=== PATIENT | female | born 1965 | race Caucasian/White ===

== ENCOUNTER 2018-08-18 20:23 | Emergency (ER) | payer MEDICARE, SELFPAY ==
[2018-08-18 20:33] VITALS: BP 143/83; PULSE 90; RESP 18; TEMP 36.7; O2SAT 97; BMI 24.0
--- NOTE | 2018-08-18 20:38 | XR_ITS ---
XR chest 2V HISTORY: ITS.REASON: chest pain ORDERING PHYSICIAN: Petey Middleton MD PATIENT AGE: 53 years COMPARISON: 01/04/2013 FINDINGS: Mild cardiomegaly without failure.. The lungs are clear without infiltrates, suspicious nodules, or pleural effusions. Small calcific density overlies right humeral head and may represent calcific tendinitis No acute bony abnormalities. IMPRESSION: Borderline cardiomegaly Calcific tendinitis right shoulder
[2018-08-18 20:47] LABS: Microscopic, Urine URINE MICROSCOPIC (MICROSCOPIC)
[2018-08-18 20:52] LABS: Appearance,Urine CLEAR (Clear); Bilirubin,Urine Negative (Negative); Blood, Urine Negative (Negative); Color,Urine YELLOW (Yellow); Glucose,Urine (UA) Negative (Negative); Ketones,Urine Negative (Negative); Leukocyte Esterase,Urine Negative (Negative); Nitrate,Urine Negative (Negative); Protein,Urine Negative (Negative); Urobilinogen,Urine 0.2 EU/dl (0.2)
[2018-08-18 20:53] LABS: Basophils % 0.3 % (0.1-2.0); Eosinophils % 0.6 % (0.1-12.0); Hematocrit 39.3 % (37.0-47.0); Hemoglobin 13.2 g/dL (12.2-16.2); Lymphocytes # 1.3 K/mm3 (0.7-4.5); Lymphocytes % 20.8 % (10-50); Mean Corpuscular HGB Conc 33.7 g/dL (31.8-35.4); Mean Corpuscular Hemoglobin 28.2 pg (27.0-31.2); Mean Corpuscular Volume 83.6 fl (81-99); Mean Platelet Volume 6.6 fl (7.4-10.4); Monocytes # 0.3 K/mm3 (0.1-1.0); Monocytes % 4.5 % (1.7-9.3); Neutrophils # 4.4 K/mm3 (1.8-7.8); Neutrophils % 73.8 % (37.0-80.0); Platelet Count 264 K/mm3 (142-424); Red Cell Distribution Width 13.3 % (11.5-17.5)
[2018-08-18 20:58] LABS: Bacteria,Urine 1+ /lpf; Mucus,Urine 1+ /lpf
[2018-08-18 21:05] LABS: Amphetamine/Metha Screen,Urine Negative ng/mL (<1000); Barbiturates Screen,Urine Negative ng/mL (<200); Benzodiazepines Screen,Urine Negative ng/mL (<200); Cannabinoid Screen,Urine Negative ng/mL (<50); Cocaine Screen,Urine Negative ng/mL (<300); Methadone Screen,Urine Positive ng/mL (<300); Opiate Screen,Urine Negative ng/mL (<300); Phencyclidine Screen,Urine Negative ng/mL (<25)
[2018-08-18 21:07] LABS: Alanine Aminotransferase 34 U/L (12-78); Albumin Level 3.6 gm/dL (3.4-5.0); Alkaline Phosphatase 119 U/L (46-116); Anion Gap 13.6 mEq/L (5-15); Aspartate Amino Transferase 19 U/L (15-37); Bilirubin,Total 0.4 mg/dL (0.2-1.0); Blood Urea Nitrogen 10 mg/dL (7-18); Calcium 8.7 mg/dL (8.5-10.1); Carbon Dioxide 27 mmol/L (21.0-32.0); Chloride 104 mmol/L (98-107); Creatinine Clearance Estimated 92 mL/min (50-200); Creatinine,Serum 0.69 mg/dL (0.55-1.02); Estimated Glomerular Filt Rate 88 ml/min (>60); GFR (African American) 107 ML/MIN (>60); Globulin 3.6 gm/dl (1.3-3.2); Glucose 113 mg/dL (74-106); Potassium 3.6 mmoL/L (3.5-5.1); Sodium 141 mmol/L (136-145); Total Protein,Serum 7.2 gm/dL (6.4-8.2); Troponin I < 0.02 ng/ml (0.00-0.06)
[2018-08-18 21:09] LABS: Ethyl Alcohol 0 mg/dL (0-99)
--- NOTE | 2018-08-18 21:18 | HMH.EDARPALP ---
ED Disposition Clinical Impression: Palpitation, Acute anxiety Disposition: Home, Self-Care Condition on Discharge: Good Instructions: Anxiety and Panic Attacks (Alternative Therapy) Additional Instructions: see pcp for follow up Referrals: Provider,Referral, [Primary Care Provider] - - Critical Care Critical Care Time: No Attestation: On 08/18/18, the high probability of a clinically significant, sudden or life threatening deterioration of the following system(s) required my full and direct attention, intervention and personal management. The time I documented below is in addition to time spent performing reported procedures but includes the following listed in this critical care notation. Medical Decision Making - Medical Records Medical records reviewed: Yes: I reviewed the patient's medical records. - Michael Inquiry Pt receiving controlled substance: No Vital Signs: 08/18/18 20:33 Temperature 98.1 F Temperature Source Oral Pulse Rate [Right Radial] 90 Respiratory Rate 18 Blood Pressure [Right Arm] 143/83 H Blood Pressure Mean [Right Arm] 103 02 Sat by Pulse Oximetry 97 - Lab Data Lab results reviewed: Yes: I reviewed the patient's lab results. Lab Results 08/18/18 20:40: Urine Color Yellow, Urine Appearance Clear, Urine pH 7.0, Ur Specific [place] 1.020, Urine Protein Negative, Urine Glucose (UA) Negative, Urine Ketones Negative, Urine Blood Negative, Urine Nitrate Negative, Urine Bilirubin Negative, Urine Urobilinogen 0.2, Ur Leukocyte Esterase Negative, Urine WBC 3-5, Ur Squamous Epith Cells 3-5, Urine Bacteria 1+, Urine Mucus 1+ 08/18/18 20:40: Urine Opiates Screen Negative, Urine Methadone Screen Positive H, Ur Barbituates Screen Negative, Ur Phencyclidine Scrn Negative, Ur Amphetamines Screen Negative, U Benzodiazepines Scrn Negative, Urine Cocaine Screen Negative, U Marijuana (THC) Screen Negative 08/18/18 20:45: WBC 6.0, RBC 4.70, Hgb 13.2, Hct 39.3, MCV 83.6, MCH 28.2, MCHC 33.7, RDW 13.3, Plt Count 264, MPV 6.6 L, Neut % (Auto) 73.8, Lymph % (Auto) 20.8, [place] % (Auto) 4.5, Eos % (Auto) 0.6, Baso % (Auto) 0.3, Neut # (Auto) 4.4, Lymph # (Auto) 1.3, [place] # (Auto) 0.3, Eos # (Auto) 0.0, Baso # (Auto) 0.0 08/18/18 20:45: Sodium 141, Potassium 3.6, Chloride 104, Carbon Dioxide 27, Anion Gap 13.6, BUN 10, Creatinine 0.69, Estimated Creat Clear 92, Estimated GFR 88, Est GFR ( Amer) 107, Glucose 113 H, Calcium 8.7, Total Bilirubin 0.4, AST 19, ALT 34, Alkaline Phosphatase 119 H, Troponin I < 0.02, Total Protein 7.2, Albumin 3.6, Globulin 3.6 H, Albumin/Globulin Ratio 1.0 L, Plasma/Serum Alcohol 0 Result diagrams: 08/18/18 20:45 08/18/18 20:45 Orders (Tests/Meds): ED MEDICATIONS Generic Name Dose Route Start Last Admin Trade Name Freq PRN Reason Stop Dose Admin Sodium Chloride 1,000 mls @ 999 mls/hr 08/18/18 20:45 08/18/18 20:46 Sod Chlor 0.9% 1000ml Bag IV 08/18/18 21:45 999 mls/hr .Q1H1M DELANEY Administration Discontinued Medications Generic Name Dose Route Start Last Admin Trade Name Freq PRN Reason Stop Dose Admin Aspirin 324 mg 08/18/18 20:38 08/18/18 20:46 Aspirin 81mg Chewable Tablet PO 08/18/18 20:39 Not Given ONCE ONE Ondansetron HCl 4 mg 08/18/18 20:39 08/18/18 20:46 Zofran 4mg/2ml Vial IV 08/18/18 20:40 4 mg ONCE ONE Administration ORDERS Category Date Time Status XR chest 2V Stat Exams 08/18/18 20:38 Taken - Radiology Data #1 Image(s): Chest Image Reviewed: Yes I reviewed the patient's radiology image Preliminary Findings: Normal/NAD - ECG Data Tracing #1 Normal Sinus Rhythm: Yes Ischemic changes: non-specific ST-T wave changes Arrhythmia/Palpitations HPI - General Chief Complaint: Anxiety Stated Complaint: Panic Attack Time Seen by Provider: 08/18/18 21:18 Mode of Arrival: Ambulatory Source of Information: Patient, Medical Record Limitations: No Limitations - History of Present Illness HPI n
[2018-08-18 21:54] VITALS: BP 126/90; PULSE 74; RESP 18; TEMP 36.7; O2SAT 100
[2018-08-18 22:20] LABS: T4 (Thyroxine) 5.6 ug/dl (4.7-13.3); Thyroid Stimulating Hormone 8.07 uIU/ml (0.358-3.740)
== END 2018-08-18 22:01 | disposition home or self-care (01) ==
PROVIDERS: Emergency Provider Emergency Medicine
DX: F41.0 Panic disorder [episodic paroxysmal anxiety] (principal); Z51.81 Encounter for therapeutic drug level monitoring
CPT/HCPCS: 71046; 80053; 80305; 81001; 84436; 84443; 84484; 85025; 93005; 96365; 96375; 99284; J2405

== ENCOUNTER 2021-03-29 05:36 | Emergency (ER) | payer MEDICARE, SELFPAY ==
[2021-03-29] VITALS (9 sets, daily range): BP systolic 128–167; BP diastolic 79–89; PULSE 82–103; RESP 16–18; TEMP 36.7; O2SAT 95–98; BMI 25.4
--- NOTE | 2021-03-29 05:46 | ECG_ITS ---
APPROVED REPORT Exam: Resting ECG HR:103 bpm ECG Measurements Heart Rate 103 AXES VT 202 P 24 QRSd 84 QRS 64 QT 352 T -2 QTc 461 Conclusion Sinus tachycardia T wave abnormality, consider inferior ischemia Abnormal ECG Electronically signed by : Brett Roman MD 03/31/2021 14:33:20
--- NOTE | 2021-03-29 05:49 | CT_ITS ---
PROCEDURE INFORMATION: Exam: CT Head Without Contrast Exam date and time: 03/29/2021 5:49 AM Age: 55 years old Clinical indication: Dizziness and visual disturbance; Additional info: Dizziness, blurred vision that started at 2 am TECHNIQUE: Imaging protocol: Computed tomography of the head without contrast. Radiation optimization: All CT scans at this facility use at least one of these dose optimization techniques: automated exposure control; mA and/or kV adjustment per patient size (includes targeted exams where dose is matched to clinical indication); or iterative reconstruction. COMPARISON: No relevant prior studies available. FINDINGS: Brain: There is subtle low attenuation in the left side of the midbrain and cerebral peduncle, extending up towards the internal capsule suspicious for a possible infarct. No evidence of intracranial hemorrhage, mass effect, midline shift or extra-axial fluid collections. Midline structures are normal. Dum[place]-white matter differentiation is normal. Cerebral ventricles: No ventriculomegaly. Paranasal sinuses: Visualized sinuses are unremarkable. No fluid levels. Mastoid air cells: Visualized mastoid air cells are well aerated. Bones/joints: Unremarkable. No acute fracture. Soft tissues: Unremarkable. IMPRESSION: Questionable infarct in the left midbrain and cerebral peduncle. If acute infarct is suspected, MRI with diffusion-weighted imaging would be helpful in further evaluating this.
--- NOTE | 2021-03-29 06:31 | HMH.EDDIZZ ---
ED Disposition Condition on Discharge: Good - Critical Care Critical Care Time: No <Petey Middleton - Last Filed: 03/29/21 08:06> Condition on Discharge: Good - Critical Care Critical Care Time: No <Esteban Frazier - Last Filed: 03/29/21 10:18> Clinical Impression: Vertigo Disposition: Home, Self-Care Instructions: Vertigo Prescriptions: Meclizine HCl [Meclizine 25mg Tab] 25 mg PO BID #20 tab Transmission Status: Pending to [facility]/pharmacy #[id number] Referrals: Provider,MD Minh [Primary Care Provider] - Coretta Brambila MD [Staff Physician] - Attestation: On 03/29/21, the high probability of a clinically significant, sudden or life threatening deterioration of the following system(s) required my full and direct attention, intervention and personal management. The time I documented below is in addition to time spent performing reported procedures but includes the following listed in this critical care notation. Medical Decision Making - Medical Records Medical records reviewed: Yes: I reviewed the patient's medical records. - Michael Inquiry Pt receiving controlled substance: No - Lab Data Lab results reviewed: Yes: I reviewed the patient's lab results. Result diagrams: 03/29/21 06:21 03/29/21 06:21 - CT Data CT Scan: Head Time Received: 07:[address] Reviewed: Yes: I have viewed the radiologist's interpretation Preliminary Findings: Abnormal (see report ) - ECG Data Tracing #1 Normal Sinus Rhythm: Yes Ischemic changes: non-specific ST-T wave changes - Reevaluation(s) Time: 07:51 <Petey Middleton - Last Filed: 03/29/21 08:06> - Lab Data Result diagrams: 03/29/21 06:21 03/29/21 06:21 - CT Data CT Scan: Other (CTA head and neck) Time Received: 10:18 - Reevaluation(s) Time: 10:16 <Esteban Frazier - Last Filed: 03/29/21 10:18> Vital Signs: 03/29/21 05:36 03/29/21 07:00 03/29/21 07:30 Temperature 98.1 F Temperature Source Oral Pulse Rate 90 82 Pulse Rate [Right Radial] 92 H Respiratory Rate 18 16 18 Blood Pressure 151/89 H 154/85 H Blood Pressure [Right Arm] 166/86 H Blood Pressure Mean 115 107 Blood Pressure Mean [Right Arm] 112 Blood Pressure Source [Right Arm] Automatic Cuff Blood Pressure Position [Right Arm] Sitting 02 Sat by Pulse Oximetry 96 98 98 Oxygen Delivery Method Room Air 03/29/21 08:00 03/29/21 08:30 03/29/21 09:00 Temperature Temperature Source Pulse Rate 87 96 H 101 H Pulse Rate [Right Radial] Respiratory Rate 16 17 16 Blood Pressure 149/83 H 167/88 H 155/87 H Blood Pressure [Right Arm] Blood Pressure Mean 108 114 109 Blood Pressure Mean [Right Arm] Blood Pressure Source [Right Arm] Blood Pressure Position [Right Arm] 02 Sat by Pulse Oximetry 95 95 96 Oxygen Delivery Method 03/29/21 09:30 03/29/21 10:00 Temperature Temperature Source Pulse Rate 95 H 101 H Pulse Rate [Right Radial] Respiratory Rate 18 16 Blood Pressure 128/86 136/79 Blood Pressure [Right Arm] Blood Pressure Mean 99 91 Blood Pressure Mean [Right Arm] Blood Pressure Source [Right Arm] Blood Pressure Position [Right Arm] 02 Sat by Pulse Oximetry 95 95 Oxygen Delivery Method - Lab Data Lab Results 03/29/21 06:21: WBC 4.9, RBC 4.80, Hgb 13.9, Hct 43.3, MCV 90.2, MCH 28.9, MCHC 32.0, RDW 13.5, Plt Count 223, MPV 7.4, Neut % (Auto) 68.5, Lymph % (Auto) 23.9, [place] % (Auto) 5.3, Eos % (Auto) 1.5, Baso % (Auto) 0.7, Neut # (Auto) 3.3, Lymph # (Auto) 1.2, [place] # (Auto) 0.3, Eos # (Auto) 0.1, Baso # (Auto) 0.0 03/29/21 06:21: Sodium 136, Potassium 3.8, Chloride 100, Carbon Dioxide 32 H, Anion Gap 7.8, BUN 14, Creatinine 0.60, Estimated Creat Clear 110, Estimated GFR 103, Est GFR ( Amer) 125, Glucose 119 H, Calcium 8.9, Troponin I < 0.01 03/29/21 06:21: Total Bilirubin 0.4, Direct Bilirubin 0.2, Conjugated Bilirubin 0.0, Indirect Bilirubin 0.2, Unconjugated Bilirubin 0.2, AST 31, ALT 19, Alkaline Phosphata
[2021-03-29 06:49] LABS: Microscopic, Urine URINE MICROSCOPIC (MICROSCOPIC)
[2021-03-29 06:51] LABS: Basophils % 0.7 % (0.1-2.0); Eosinophils # 0.1 K/mm3 (0.0-0.4); Eosinophils % 1.5 % (0.1-12.0); Hematocrit 43.3 % (37.0-47.0); Hemoglobin 13.9 g/dL (12.2-16.2); Lymphocytes # 1.2 K/mm3 (0.7-4.5); Lymphocytes % 23.9 % (10-50); Mean Corpuscular Hemoglobin 28.9 pg (27.0-31.2); Mean Corpuscular Volume 90.2 fl (81-99); Mean Platelet Volume 7.4 fl (7.4-10.4); Monocytes # 0.3 K/mm3 (0.1-1.0); Monocytes % 5.3 % (1.7-9.3); Neutrophils # 3.3 K/mm3 (1.8-7.8); Neutrophils % 68.5 % (37.0-80.0); Platelet Count 223 K/mm3 (142-424); Red Cell Distribution Width 13.5 % (11.5-17.5); White Blood Count 4.9 K/mm3 (4.8-10.8)
[2021-03-29 07:05] LABS: Appearance,Urine CLEAR (Clear); Bilirubin,Urine Negative (Negative); Blood, Urine Negative (Negative); Color,Urine YELLOW (Yellow); Glucose,Urine (UA) Negative (Negative); Ketones,Urine Negative (Negative); Leukocyte Esterase,Urine Negative (Negative); Nitrate,Urine Negative (Negative); PH,Urine 6.5 (5.0-8.5); Protein,Urine Negative (Negative); Urobilinogen,Urine 0.2 EU/dl (0.2)
[2021-03-29 07:05] LABS: Anion Gap 7.8 mEq/L (5-15); Blood Urea Nitrogen 14 mg/dl (7-17); Calcium 8.9 mg/dl (8.4-10.2); Carbon Dioxide 32 mmol/L (22.0-30.0); Chloride 100 mmol/L (98-107); Creatinine Clearance Estimated 110 mL/min (50-200); Estimated Glomerular Filt Rate 103 ml/min (>60); GFR (African American) 125 ML/MIN (>60); Glucose 119 mg/dl (74-100); Potassium 3.8 mmoL/L (3.5-5.1); Sodium 136 mmol/L (136-145)
[2021-03-29 07:26] LABS: Troponin I < 0.01 ng/ml (0.00-0.034)
[2021-03-29 07:27] LABS: Erythrocyte Sedimentation Rate 10 mm/hr (0-30)
[2021-03-29 07:29] LABS: Squamous Epithelial Cell,Urine Occasional #/hpf (0-5)
[2021-03-29 07:34] LABS: Opiate Screen,Urine Negative ng/ml (<300); Phencyclidine Screen,Urine Negative ng/ml (<25)
[2021-03-29 07:37] LABS: Amphetamine/Metha Screen,Urine Negative ng/ml (<1000)
[2021-03-29 07:38] LABS: Barbiturates Screen,Urine Negative ng/ml (<200)
[2021-03-29 07:39] LABS: Benzodiazepines Screen,Urine Negative ng/ml (<200); Cannabinoid Screen,Urine Negative ng/ml (<50)
[2021-03-29 07:40] LABS: Cocaine Screen,Urine Negative ng/ml (<300)
[2021-03-29 07:41] LABS: Methadone Screen,Urine Positive ng/ml (<300)
--- NOTE | 2021-03-29 07:49 | CT_ITS ---
FINAL REPORT TECHNIQUE: Thin section axial CT with IV contrast supplemented with multiplanar reconstruction under CT angiogram protocol. 3-D reconstructions were performed. This study was performed with techniques to keep radiation doses as low as reasonably achievable (ALARA). Individualized dose reduction techniques using automated exposure control or adjustment of mA and/or kV according to the patient''s size were employed. CLINICAL HISTORY: dizziness FINDINGS: The distal vertebral, basilar and distal internal carotid arteries have an unremarkable appearance. No aneurysm is seen. Major intracranial vessels are patent without significant stenosis. IMPRESSION: Unremarkable exam. Reviewed, Interpreted and Dictated by Jarrett Ruvalcaba MD Transcribed by Sydnee Garcia Authenticated by Jarrett Ruvalcaba MD on 03/29/2021 10:08:47 AM [facility]
--- NOTE | 2021-03-29 07:49 | CT_ITS ---
FINAL REPORT TECHNIQUE: Thin section axial CT with IV contrast supplemented with multiplanar reconstruction under CT angiogram protocol. This study was performed with techniques to keep radiation doses as low as reasonably achievable (ALARA). Individualized dose reduction techniques using automated exposure control or adjustment of mA and/or kV according to the patient''s size were employed. NASCET criteria was utilized during interpretation. CLINICAL HISTORY: dizziness FINDINGS: Aortic arch: Arch shows no significant narrowing. Great vessel origins are widely patent. Right carotid: No significant stenosis is seen of the cervical common or internal carotid artery. There is marked tortuosity of the proximal ICA. Left carotid: No significant stenosis is seen of the cervical common or internal carotid artery. There is marked tortuosity of the proximal ICA. Vertebral: Left vertebral artery is dominant. No significant stenosis is present. There is mild mucoperiosteal thickening in the ethmoid air cells. There is mild mucoperiosteal thickening in both mastoid air cells consistent with mastoiditis. IMPRESSION: No significant stenosis. Reviewed, Interpreted and Dictated by Jarrett Ruvalcaba MD Transcribed by Sydnee Garcia Authenticated by Jarrett Ruvalcaba MD on 03/29/2021 10:08:[address] [facility]
[2021-03-29 07:53] LABS: Alanine Aminotransferase 19 U/L (12-78); Albumin Level 4.3 g/dl (3.5-5.0); Alkaline Phosphatase 79 U/L (38-126); Aspartate Amino Transferase 31 U/L (14-36); Bilirubin,Direct 0.2 mg/dl (0.0-0.4); Bilirubin,Indirect 0.2 mg/dL (0.0-0.9); Bilirubin,Total 0.4 mg/dl (0.2-1.3); Bilirubin,Unconjugated 0.2 mg/dL (0.0-1.1); Total Protein,Serum 6.7 g/dl (6.3-8.2)
[2021-03-29 08:01] LABS: C-Reactive Protein 0.5 mg/L (0-4)
--- NOTE | 2021-03-29 08:10 | PC.NURSE ---
pt to CT
[2021-03-29 08:15] LABS: T4 (Thyroxine) 5.8 ug/dl (5.53-11.0)
[2021-03-29 10:32] LABS: Troponin I < 0.01 ng/ml (0.00-0.034)
== END 2021-03-29 10:25 | disposition home or self-care (01) ==
PROVIDERS: Emergency Provider Emergency Medicine
DX: R42 Dizziness and giddiness (principal); H53.8 Other visual disturbances; Z79.899 Other long term (current) drug therapy
CPT/HCPCS: 70450; 70496; 70498; 80048; 80076; 80305; 81001; 84436; 84443; 84484; 85025; 85651; 86140; 93005; 96365; 96375; 99283; Q9967

== ENCOUNTER 2021-11-13 11:10 | Emergency (ER) | payer MEDICARE, SELFPAY ==
[2021-11-13 12:00] VITALS: BP 138/90; PULSE 72; RESP 18; TEMP 37.1; O2SAT 99; BMI 24.0
--- NOTE | 2021-11-13 12:24 | HMH.EDUTC ---
[facility] [place] Clinical Impression: Gastroenteritis Disposition: Home, Self-Care Condition on Discharge: Good Instructions: DI for Viral Gastroenteritis -- Adult Additional Instructions: Drink plenty of fluids. Take tylenol or ibuprofen for pain or fever. Take the medications as directed. Follow up with your regular doctor. GO TO THE ER FOR ANY WORSENING SYMPTOMS Quarantine until you know the results of your covid-19 test. Notify your school or workplace of your results and follow their instructions regarding return to work/school. Prescriptions: Ondansetron [Zofran 4mg ODT] 4 mg PO Q8HP PRN #20 tab PRN Reason: Nausea Transmission Status: Received by [facility]/pharmacy #[id number] Referrals: Provider,Referral, MD [Primary Care Provider] - Time of Disposition: 12:45 Medical Decision Making - Medical Records Medical records reviewed: No: I reviewed the patient's medical records. - Michael Inquiry Pt receiving controlled substance: No Vital Signs: 11/13/21 12:00 11/13/21 12:46 Temperature 98.7 F 98.7 F Temperature Source Oral Pulse Rate 72 Pulse Rate [Right Brachial] 72 Respiratory Rate 18 18 Blood Pressure 138/90 Blood Pressure [Right Arm] 138/90 Blood Pressure Mean [Right Arm] 106 Blood Pressure Source [Right Arm] Automatic Cuff Blood Pressure Position [Right Arm] Sitting 02 Sat by Pulse Oximetry 99 Oxygen Delivery Method Room Air [facility] [place] HPI - General Stated complaint: nausea Time Seen by Provider: 11/13/21 12:24 Mode of Arrival: Ambulatory Source of Information: Patient Limitations: No Limitations Description of Symptoms (Recalled from Triage Doc. by RN): PATIENT C/O NAUSEA AND UPSET STOMACH X 6 DAYS HEENT Symptoms (Recalled from RN notes): No Resp Symptoms (Recalled from RN notes): No Skin Symptoms (Recalled from RN notes): No MS Symptoms (Recalled from RN notes): No Functional Status (Recalled from RN notes): WNL - History of Present Illness Provider Complaint: She states that for the past 5 days she has had nausea. She denies any vomiting, diarrhea or constiption. Her last bm was yesterday and she states that it was normal. She denies any fever or chills. - Related Data Home Medications Medication Instructions Recorded Confirmed Aspirin [Aspirin 325mg Tab] 325 mg PO DAILY 08/18/18 03/29/21 Methadone HCl 51 mg PO DAILY 08/18/18 03/29/21 Previous Rx's Medication Instructions Recorded Meclizine HCl [Meclizine 25mg Tab] 25 mg PO BID #20 tab 03/29/21 Ondansetron [Zofran 4mg ODT] 4 mg PO Q8HP PRN #20 tab 11/13/21 Allergies Allergy/AdvReac Type Severity Reaction Status Date / Time codeine Allergy Verified 11/13/21 12:20 - Worker's Comp Is this a Worker's Comp case?: No [facility] History - Hepatitis A Screen Attestation statement:: This patient has been screened for Hepatitis A risk factors. I have reviewed the patient's past medical history: Yes Medical History: Denies:: Cancer, Diabetes Mellitus Type 1, Diabetes Mellitus Type 2, MRSA Amputation: No - Social History Smoking Status: Never smoker Alcohol Intake: never Occupational Status: disabled ROS Obtained: Yes All systems reviewed & no additional complaints - Constitutional Constitutional: Reports as per HPI - Eyes Eyes: Denies eye discharge - ENT Ears, Nose, Mouth, and Throat: Denies dizziness, Denies otalgia, Denies sore throat - Cardiovascular Cardiovascular: Denies chest pain - Respiratory Respiratory: Denies chest congestion, Denies cough - Gastrointestinal Gastrointestingal: Reports: as per HPI - Musculoskeletal Musculoskeletal: Denies joint pain - Integumentary/Breasts Skin/Breast: Denies rash Physical Exam - General General appearance: alert, in no apparent distress - Head Head exam: atraumatic, normocephalic, normal inspection - Eye Eye exam: Present: normal appearance, PERRL, EOMI - ENT ENT exam: Present: normal exam, normal
[2021-11-13 12:46] VITALS: BP 138/90; PULSE 72; RESP 18; TEMP 37.1; O2SAT 99
--- NOTE | 2021-11-13 12:51 | PC.NURSE ---
PATIENT REFUSED COVID TEST AT THIS TIME
== END 2021-11-13 12:53 | disposition home or self-care (01) ==
PROVIDERS: Emergency Provider Nurse Practitioner Family
DX: K52.9 Noninfective gastroenteritis and colitis, unspecified (principal)
CPT/HCPCS: 99212; G0463

== ENCOUNTER 2023-11-12 16:25 | Emergency (ER) | payer MEDICARE, SELFPAY ==
[2023-11-12 16:26] VITALS: BP 145/85; PULSE 118; RESP 16; O2SAT 96; BMI 27.3
--- NOTE | 2023-11-12 16:30 | ED_ITS ---
<Statement entered by Kristina Lucero DO - 11/12/23 21:59> I was consulted by the DEJAN, and we discussed the complexity of the problems being addressed. I approved the treatment and management plan for this patient's care in the emergency department, thus performing a substantive portion of the medical decision making. Kristina Lucero DO Discharge Plan Disposition Patient Disposition: Xfer Short-Term Hosp Condition: Serious Chief Complaint: Abdominal Pain Prescriptions Prescriptions: No Action methadone 10 MG/5 ML solution 51 mg PO DAILY aspirin 325 MG tablet 325 mg PO DAILY ondansetron 4 MG tablet,disintegrating 4 mg PO Q8HP PRN (Reason: Nausea) Qty: 20 0RF meclizine 25 MG tablet,chewable 25 mg PO BID Qty: 20 0RF Referrals Follow up/Referrals: Provider,Referral, MD [Primary Care Provider] - See instructions Activity Restrictions/Add. Instructions Additional Instructions/Restrictions: To the [place] ER accepted by Dr Singh Clinical Impressions Clinical Impression: Right upper quadrant abdominal pain, Gallbladder hydrops, Ascites, Mass of uterine adnexa Instructions Patient Instructions: DI for Acute Abdominal Pain Print Language Print Language: Armenian Discharge ED Provider: Kristina Lucero General Adult HPI <TRAY Leo - Last Filed: 11/12/23 20:21> General Chief complaint: Abdominal Pain Stated complaint: Stomach pain,nausea Time Seen by Provider: 11/12/23 16:28 History of Present Illness HPI narrative: Patient presents for evaluation of acute abdominal pain. Patient states that she woke up this morning with generalized sharp abdominal pain. She has had nausea but no vomiting or diarrhea. She has had a bowel movement and is passing gas. She has only been able to tolerate a cracker today. Pain does not radiate and is diffuse with no focal area of tenderness. She denies chest pain shortness of breath fever chills hemoptysis hematochezia melena hematemesis hematuria dysuria Related Data Home Medications ?Medication ?Instructions ?Recorded ?Confirmed aspirin 325 mg tablet 325 mg PO DAILY heart health 08/18/18 03/29/21 methadone 10 mg/5 mL oral solution 51 mg PO DAILY Pain 08/18/18 03/29/21 Previous Rx's ?Medication ?Instructions ?Recorded meclizine 25 mg chewable tablet 25 mg PO BID #20 tabs 03/29/21 ondansetron 4 mg disintegrating 4 mg PO Q8HP PRN Nausea #20 tabs 11/13/21 tablet Allergies Allergy/AdvReac Type Severity Reaction Status Date / Time codeine Allergy Verified 11/13/21 12:20 PFS <TRAY Leo - Last Filed: 11/12/23 20:21> [facility] Disclaimer: The information contained in this section may have been updated after the patient was seen, as this information can be updated by other users. Social History Smoking Status: Never smoker alcohol intake: never current occupational status: disabled Travel in the last 8 weeks: None <TRAY Leo - Last Filed: 11/12/23 20:21> ROS Obtained: Yes Systems reviewed as appropriate & no additional complaints except as documented Physical Exam <TRAY Leo - Last Filed: 11/12/23 20:21> General General appearance: alert and in no apparent distress Respiratory Respiratory exam: Present normal lung sounds bilaterally Cardiovascular Cardiovascular exam: Present normal rhythm, tachycardia, normal heart sounds, +S1 and +S2 Abdominal Exam Abdominal exam: Present soft, tenderness (Patient is diffusely tender without rebound or guarding or rigidity. Patient has an umbilical hernia that at the moment is nonreducible due to her discomfort. She has had it for a long time she says it is never caused her problems before.) and normal bowel sounds; Absent guarding or rebound Neurological Exam Neurological exam: Present alert and oriented X3 Medical Decision Making <TRAY Leo - Last Filed: 11/12/23 20:21> Medical Records Medical records reviewed: Yes I reviewed the patient's medical records. Michael Inquiry Pt receiving controlled substance: No Vital Signs: 11/12/23 16:26 11/12/23 17:00 11/12/23 17:31 Pulse Rate 108 H 91 H Pulse Rate [Radial] 118 H Respiratory Rate 16 Blood Pressure 115/76 117/67 Blood Pressure [Right Arm] 145/85 H Blood Pressure Mean Blood Pressure Mean [Right Arm] 105 Blood Pressure Source [Right Arm] Automatic Cuff Blood Pressure Position [Right Arm] Sitting 02 Sat by Pulse Oximetry 96 96 96 Oxygen Delivery Method Room Air Room Air Room Air 11/12/23 18:00 11/12/23 18:30 Pulse Rate 86 90 Pulse Rate [Radial] Respiratory Rate Blood Pressure 133/77 134/83 Blood Pressure [Right Arm] Blood Pressure Mean 89 97 Blood Pressure Mean [Right Arm] Blood Pressure Source [Right Arm] Blood Pressure Position [Right Arm] 02 Sat by Pulse Oximetry 97 96 Oxygen Delivery Method Lab Data Lab results reviewed: Yes I reviewed the patient's lab results. Lab Results 11/12/23 16:32: Urine Color Yellow, Urine Appearance Clear, Urine pH 5.5, Ur Specific Newcomb >= 1.030, Urine Protein Trace, Urine Glucose (UA) Negative, Urine Ketones Negative, Urine Blood 1+, Urine Nitrate Negative, Urine Bilirubin Negative, Urine Urobilinogen 0.2, Ur Leukocyte Esterase Negative, Urine RBC 3-5, Urine WBC 3-5, Ur Squamous Epith Cells 10-20, Urine Bacteria 2+, Urine Mucus 2+ 11/12/23 16:41: WBC 12.6 H, RBC 4.78, Hgb 14.0, Hct 44.6, MCV 93.3, MCH 29.2, M CHC 31.3 L, RDW 14.1, Plt Count 277, MPV 7.2 L, Neut % (Auto) 93.8 H, Lymph % (Auto) 3.9 L, Willacy % (Auto) 1.7, Eos % (Auto) 0.5, Baso % (Auto) 0.1, Neut # (Auto) 11.8 H, Lymph # (Auto) 0.5 L, Willacy # (Auto) 0.2, Eos # (Auto) 0.1, Baso # (Auto) 0.0, Total Counted 100, Neutrophils % (Manual) 91 H, Lymphocytes % (Manual) 7 L, Monocytes % (Manual) 2, Platelet Estimate Normal, RBC Morphology Normal, PT 11.2, INR 1.00, Sodium 137, Potassium 4.2, Chloride 104, Carbon Dioxide 28, Anion Gap 9.2, BUN 15, Creatinine 0.60, Estimated Creat Clear 104, Estimated GFR 102, Est GFR ( Amer) 123, Glucose 141 H, Lactate 2.0, Calcium 8.8, Total Bilirubin 1.1, AST 39 H, ALT 27, Alkaline Phosphatase 72, Total Protein 7.3, Albumin 4.1, Globulin 3.2, Albumin/Globulin Ratio 1.3, Lipase 44 11/12/23 16:41 11/12/23 16:41 Orders (Tests/Meds): ED MEDICATIONS Discontinued Medications Generic Name Dose Route Start Last Admin Trade Name Melisa PRN Reason Stop Dose Admin Acetaminophen 1,000 mg 11/12/23 16:35 11/12/23 16:47 Acetaminophen 1,000mg/100ml Vial IV 11/12/23 16:36 1,000 mg ONCE ONE Administration Lactated Ringer's 1,000 mls @ 999 mls/hr 11/12/23 16:35 11/12/23 16:47 Lactated Ringer's 1000 Ml Bag IV 11/12/23 17:35 999 mls/hr .Q1H1M ONE Administration Piperacillin Sod/Tazobactam 50 mls @ 100 mls/hr 11/12/23 17:54 11/12/23 18:25 Sod 3.375 gm/ Sodium Chloride IV 11/12/23 18:23 100 mls/hr ONCE ONE Administration Iopamidol 75 ml 11/12/23 17:37 11/12/23 17:38 Iopamidol-370 (76%);100ml Bottle IV 11/12/23 17:38 75 ml ONCE ONE Administration Ketorolac Tromethamine 15 mg 11/12/23 16:35 11/12/23 16:48 Ketorolac 30mg/Ml Vial IV 11/12/23 16:36 15 mg ONCE ONE Administration Ondansetron HCl 4 mg 11/12/23 16:35 11/12/23 16:47 Ondansetron 4mg/2ml Vial IV 11/12/23 16:36 4 mg ONCE ONE Administration Sodium Chloride 10 ml 11/12/23 17:37 11/12/23 17:38 Sodium Chloride 0.9% 10ml Syr (Rad Only) IV 11/12/23 17:38 10 ml ONCE ONE Administration ORDERS Category Date Time Status CT abdomen pelvis w con Stat Cat Scan 11/12/23 16:35 Completed CBC w/Auto Diff [Complete Blood Count Auto Diff] Stat Lab 11/12/23 16:41 Completed CMP [Comprehensive Metabolic Panel] Stat Lab 11/12/23 16:41 Completed INR [Prothrombin Time INR] Stat Lab 11/12/23 16:41 Completed Lactic Acid Stat Lab 11/12/23 16:41 Completed Lipase Stat Lab 11/12/23 16:41 Completed UA [Urinalysis and Microscopic] Stat Lab 11/12/23 16:32 Completed Urine Culture Stat Micro 11/12/23 16:32 Received Medical Decision Narrative: In summary patient is a 58-year-old female who presents to the emergency department for evaluation of acute abdominal pain. Patient is normotensive but tachycardic at 120 upon arrival, afebrile. Physical exam is remarkable for soft abdomen but diffusely tender to palpation in all 4 quadrants and she has a palpable umbilical hernia with a loop of bowel that at the moment is on reducible due to the patient's discomfort. Differential diagnosis includes bowel obstruction versus incarcerated hernia versus gastroenteritis versus pancreatitis etc. Initial workup will be conducted with hematologic labs CT scan abdomen pelvis urinalysis. Initial interventions include crystalloid bolus Toradol Tylenol. Initial workup reviewed by me and she has a white count of 12 with a left shift however the remainder of her hematologic labs are nonactionable including normal transaminases and bilirubin however my informal interpretation of her CT scan abdomen pelvis shows a significantly distended gallbladder suggestive of hydrops with what appears to be a stone impacted in the neck a significant amount of ascites and a complex mass in the adnexa worrisome for primary ovarian neoplasm probably radiology read. Upon repeat evaluation I queried whether or not the patient had any primary care and she cannot recall the last time that she had any type of preventative care probably more than a decade. Does not have a HARVESTING CONTRACTOR that she follows with. She has never had any abdominal surgeries.. Given this I had another discussion with [facility] center Dr. Irene regarding patient management and patient has been accepted to the [place] emergency department for further evaluation and care. <Kristina Lucero, DO - Last Filed: 11/12/23 16:47> Vital Signs: 11/12/23 16:26 11/12/23 17:00 11/12/23 17:31 Pulse Rate 108 H 91 H Pulse Rate [Radial] 118 H Respiratory Rate 16 Blood Pressure 115/76 117/67 Blood Pressure [Right Arm] 145/85 H Blood Pressure Mean Blood Pressure Mean [Right Arm] 105 Blood Pressure Source [Right Arm] Automatic Cuff Blood Pressure Position [Right Arm] Sitting 02 Sat by Pulse Oximetry 96 96 96 Oxygen Delivery Method Room Air Room Air Room Air 11/12/23 18:00 11/12/23 18:30 Pulse Rate 86 90 Pulse Rate [Radial] Respiratory Rate Blood Pressure 133/77 134/83 Blood Pressure [Right Arm] Blood Pressure Mean 89 97 Blood Pressure Mean [Right Arm] Blood Pressure Source [Right Arm] Blood Pressure Position [Right Arm] 02 Sat by Pulse Oximetry 97 96 Oxygen Delivery Method Lab Data Lab Results 11/12/23 16:32: Urine Color Yellow, Urine Appearance Clear, Urine pH 5.5, Ur Specific Newcomb >= 1.030, Urine Protein Trace, Urine Glucose (UA) Negative, Urine Ketones Negative, Urine Blood 1+, Urine Nitrate Negative, Urine Bilirubin Negative, Urine Urobilinogen 0.2, Ur Leukocyte Esterase Negative, Urine RBC 3-5, Urine WBC 3-5, Ur Squamous Epith Cells 10-20, Urine Bacteria 2+, Urine Mucus 2+ 11/12/23 16:41: WBC 12.6 H, RBC 4.78, Hgb 14.0, Hct 44.6, MCV 93.3, MCH 29.2, M CHC 31.3 L, RDW 14.1, Plt Count 277, MPV 7.2 L, Neut % (Auto) 93.8 H, Lymph % (Auto) 3.9 L, Willacy % (Auto) 1.7, Eos % (Auto) 0.5, Baso % (Auto) 0.1, Neut # (Auto) 11.8 H, Lymph # (Auto) 0.5 L, Willacy # (Auto) 0.2, Eos # (Auto) 0.1, Baso # (Auto) 0.0, Total Counted 100, Neutrophils % (Manual) 91 H, Lymphocytes % (Manual) 7 L, Monocytes % (Manual) 2, Platelet Estimate Normal, RBC Morphology Normal, PT 11.2, INR 1.00, Sodium 137, Potassium 4.2, Chloride 104, Carbon Dioxide 28, Anion Gap 9.2, BUN 15, Creatinine 0.60, Estimated Creat Clear 104, Estimated GFR 102, Est GFR ( Amer) 123, Glucose 141 H, Lactate 2.0, Calcium 8.8, Total Bilirubin 1.1, AST 39 H, ALT 27, Alkaline Phosphatase 72, Total Protein 7.3, Albumin 4.1, Globulin 3.2, Albumin/Globulin Ratio 1.3, Lipase 44 Orders (Tests/Meds): ED MEDICATIONS Discontinued Medications Generic Name Dose Route Start Last Admin Trade Name Freq PRN Reason Stop Dose Admin Acetaminophen 1,000 mg 11/12/23 16:35 11/12/23 16:47 Acetaminophen 1,000mg/100ml Vial IV 11/12/23 16:36 1,000 mg ONCE ONE Administration Lactated Ringer's 1,000 mls @ 999 mls/hr 11/12/23 16:35 11/12/23 16:47 Lactated Ringer's 1000 Ml Bag IV 11/12/23 17:35 999 mls/hr .Q1H1M ONE Administration Piperacillin Sod/Tazobactam 50 mls @ 100 mls/hr 11/12/23 17:54 11/12/23 18:25 Sod 3.375 gm/ Sodium Chloride IV 11/12/23 18:23 100 mls/hr ONCE ONE Administration Iopamidol 75 ml 11/12/23 17:37 11/12/23 17:38 Iopamidol-370 (76%);100ml Bottle IV 11/12/23 17:38 75 ml ONCE ONE Administration Ketorolac Tromethamine 15 mg 11/12/23 16:35 11/12/23 16:48 Ketorolac 30mg/Ml Vial IV 11/12/23 16:36 15 mg ONCE ONE Administration Ondansetron HCl 4 mg 11/12/23 16:35 11/12/23 16:47 Ondansetron 4mg/2ml Vial IV 11/12/23 16:36 4 mg ONCE ONE Administration Sodium Chloride 10 ml 11/12/23 17:37 11/12/23 17:38 Sodium Chloride 0.9% 10ml Syr (Rad Only) IV 11/12/23 17:38 10 ml ONCE ONE Administration ORDERS Category Date Time Status CT abdomen pelvis w con Stat Cat Scan 11/12/23 16:35 Completed CBC w/Auto Diff [Complete Blood Count Auto Diff] Stat Lab 11/12/23 16:41 Completed CMP [Comprehensive Metabolic Panel] Stat Lab 11/12/23 16:41 Completed INR [Prothrombin Time INR] Stat Lab 11/12/23 16:41 Completed Lactic Acid Stat Lab 11/12/23 16:41 Completed Lipase Stat Lab 11/12/23 16:41 Completed UA [Urinalysis and Microscopic] Stat Lab 11/12/23 16:32 Completed Urine Culture Stat Micro 11/12/23 16:32 Received ECG Data Tracing #1: I reviewed this ECG and interpreted as documented below: Sinus tachycardia with a ventricular rate of [address] changes concerning for ischemia. Normal intervals. Nonspecific ST/T wave abnormality that is unchanged from prior EKG. ECG initial impression date: 11/12/23 ECG initial impression time: 16:45 Critical Care <TRAY Leo - Last Filed: 11/12/23 20:21> Critical Care Time Critical Care Time: No
--- NOTE | 2023-11-12 16:35 | CT_ITS ---
PROCEDURE INFORMATION: Exam: CT Abdomen And Pelvis With Contrast Exam date and time: 11/12/2023 5:40 PM Age: 58 years old Clinical indication: Abdominal pain; Generalized; Additional info: Acute abdominal pain TECHNIQUE: Imaging protocol: Computed tomography of the abdomen and pelvis with contrast. Radiation optimization: All CT scans at this facility use at least one of these dose optimization techniques: automated exposure control; mA and/or kV adjustment per patient size (includes targeted exams where dose is matched to clinical indication); or iterative reconstruction. Contrast material: ISOVUE; Contrast volume: 75 ml; Contrast route: IV; COMPARISON: CR Chest 08/18/2018 9:11 PM FINDINGS: Lungs: Scattered areas of bronchial wall thickening which are likely chronic inflammatory. A few areas of subpleural reticulation are noted, nonspecific. Liver: Normal. Gallbladder and biliary ducts: There is cholelithiasis within a distended gallbladder. There is intrahepatic biliary ductal dilatation. Pancreas: There is fatty replacement of the pancreas. Spleen: Normal. Adrenal glands: The adrenal glands appear normal. Kidneys and ureters: There are bilateral simple appearing renal cysts. Stomach and bowel: The stomach, small bowel, and colon are well-distended and show no evidence of wall thickening, masses, or obstruction. Appendix: No evidence of appendicitis. Intraperitoneal space: There is small to moderate volume ascites. There is some stranding within omentum. Vasculature: There is atherosclerotic disease of the visualized aorta and its major branch vessels. Lymph nodes: No lymphadenopathy. Urinary bladder: Unremarkable as visualized. Reproductive: There is a complex partially cystic mass extending from left adnexa which measures 10.9 x 7.9 cm (image 96 series 3). Bones/joints: There is diffuse degenerative disease of the visualized osseous structures. Soft tissues: There is a small fat containing umbilical hernia. IMPRESSION: 1. 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 Stranding within omentum could reflect omental involvement or edema. 2. Distended and stone filled gallbladder with a dilated biliary tree, findings could reflect cholecystitis with choledocholithiasis and correlation with exam as well as laboratory values is suggested. COMMENTS: Consistent with the [employer]'s Incidental Findings Committee white paper (J Am Kdoak Radiol 2018): Any incidental renal lesion less than 1 cm or classified as too small to characterize, or any incidental cystic renal lesion characterized as simple-appearing, is likely benign. No follow-up imaging is recommended for these lesions per consensus recommendations based on imaging criteria.
[2023-11-12 16:42] LABS: Microscopic, Urine URINE MICROSCOPIC (MICROSCOPIC)
[2023-11-12 16:43] LABS: Appearance,Urine CLEAR (Clear); Bilirubin,Urine Negative (Negative); Blood, Urine 1+ (Negative); Color,Urine YELLOW (Yellow); Glucose,Urine (UA) Negative (Negative); Ketones,Urine Negative (Negative); Leukocyte Esterase,Urine Negative (Negative); Nitrate,Urine Negative (Negative); PH,Urine 5.5 (5.0-8.5); Protein,Urine TRACE (Negative); Specific Gravity, Urine >= 1.030 (1.005-1.030); Urobilinogen,Urine 0.2 EU/dl (0.2)
--- NOTE | 2023-11-12 16:44 | ECG_ITS ---
APPROVED REPORT Exam: Resting ECG HR:106 bpm ECG Measurements Heart Rate 106 AXES UT 167 P 24 QRSd 87 QRS 56 QT 333 T -9 QTc 395 Conclusion SINUS TACHYCARDIA NONSPECIFIC ST & T-WAVE ABNORMALITY ABNORMAL ECG Electronically signed by : NEGAR HODGES, 11/12/2023 19:07:15
[2023-11-12] MEDS: ACETAMINOPHEN 1,000MG/100ML VIAL 1000 MG IV (16:47)
[2023-11-12] MEDS: ONDANSETRON 4MG/2ML VIAL 4 MG IV (16:47)
[2023-11-12] MEDS: LACTATED RINGERS 1000ML 1,000 ML 999 ML IV (16:47)
[2023-11-12] MEDS: KETOROLAC 30MG/ML VIAL 15 MG IV (16:48)
[2023-11-12 16:52] LABS: Basophils % 0.1 % (0.1-2.0); Eosinophils # 0.1 K/mm3 (0.0-0.4); Eosinophils % 0.5 % (0.1-12.0); Hematocrit 44.6 % (37.0-47.0); Lymphocytes # 0.5 K/mm3 (0.7-4.5); Lymphocytes % 3.9 % (10-50); Mean Corpuscular HGB Conc 31.3 g/dL (31.8-35.4); Mean Corpuscular Hemoglobin 29.2 pg (27.0-31.2); Mean Corpuscular Volume 93.3 fl (81-99); Mean Platelet Volume 7.2 fl (7.4-10.4); Monocytes # 0.2 K/mm3 (0.1-1.0); Monocytes % 1.7 % (1.7-9.3); Neutrophils # 11.8 K/mm3 (1.8-7.8); Neutrophils % 93.8 % (37.0-80.0); Platelet Count 277 K/mm3 (142-424); Red Blood Count 4.78 M/mm3 (4.20-5.40); Red Cell Distribution Width 14.1 % (11.5-17.5); White Blood Count 12.6 K/mm3 (4.8-10.8)
[2023-11-12 16:58] LABS: MANUAL DIFFERENTIAL MANUAL DIFFERENTIAL (MANUAL DIFF)
[2023-11-12 17:00] VITALS: BP 115/76; PULSE 108; O2SAT 96
[2023-11-12 17:01] LABS: Bacteria,Urine 2+ /lpf; Mucus,Urine 2+ /lpf
[2023-11-12 17:08] LABS: Lipase 44 U/L (23-300)
[2023-11-12 17:11] LABS: Alanine Aminotransferase 27 U/L (12-78); Albumin Level 4.1 g/dl (3.5-5.0); Albumin/Globulin Ratio 1.3 (1.1-1.8); Alkaline Phosphatase 72 U/L (38-126); Anion Gap 9.2 mEq/L (5-15); Aspartate Amino Transferase 39 U/L (14-36); Bilirubin,Total 1.1 mg/dl (0.2-1.3); Blood Urea Nitrogen 15 mg/dl (7-17); Calcium 8.8 mg/dl (8.4-10.2); Carbon Dioxide 28 mmol/L (22.0-30.0); Chloride 104 mmol/L (98-107); Creatinine Clearance Estimated 104 mL/min (50-200); Estimated Glomerular Filt Rate 102 ml/min (>60); GFR (African American) 123 ML/MIN (>60); Globulin 3.2 g/dL (1.3-3.2); Glucose 141 mg/dl (74-100); Potassium 4.2 mmoL/L (3.5-5.1); Prothrombin Time 11.2 seconds (10.1-12.5); Sodium 137 mmol/L (136-145); Total Protein,Serum 7.3 g/dl (6.3-8.2)
[2023-11-12 17:31] VITALS: BP 117/67; PULSE 91; O2SAT 96
[2023-11-12] MEDS: IOPAMIDOL-370 (76%);100ML BOTTLE 75 ML IV (17:38)
[2023-11-12] MEDS: SODIUM CHLORIDE 0.9% 10ML SYR (RAD ONLY) 10 ML IV (17:38)
[2023-11-12 17:47] LABS: Lymphocytes % 7 % (10-50); Monocytes % 2 % (2-9); Neutrophils % 91 % (42-76); Platelet Estimate Normal; RBC Morphology Normal; Total Cells Counted 100
[2023-11-12 18:00] VITALS: BP 133/77; PULSE 86; O2SAT 97
[2023-11-12] MEDS: PIPERCILLIN/TAZO 3.375 GM in 0.9 % SODIUM CHLORIDE 50 ML IV (18:25)
[2023-11-12 18:30] VITALS: BP 134/83; PULSE 90; O2SAT 96
--- NOTE | 2023-11-12 18:38 | PC.NURSE ---
Spoke with [facility] transfer center. Waiting land acquisition analyst back from provider
--- NOTE | 2023-11-12 20:39 | PC.NURSE ---
[facility] notified of tx to [facility]. They advised they would call supervisor cook house to see if OB pt that has been waiting for a while needs to go first and they would call back
[2023-11-12 21:47] VITALS: BP 102/66; PULSE 85; RESP 16; TEMP 36.9; O2SAT 95
== END 2023-11-12 21:50 | disposition short-term general hospital (02) ==
PROVIDERS: Physician Assistant; Emergency Provider Emergency Medicine
DX: R10.11 Right upper quadrant pain (principal); K82.1 Hydrops of gallbladder; N83.8 Other noninflammatory disorders of ovary, fallopian tube and broad ligament; R18.8 Other ascites; R11.0 Nausea; R00.0 Tachycardia, unspecified
CPT/HCPCS: 74177; 80053; 81001; 83605; 83690; 85007; 85025; 85027; 85610; 87086; 93005; 96361; 96365; 96375; 99285; J0131; J1885; J2405; J2543; J7120; Q9967

== ENCOUNTER 2024-07-23 14:14 | Emergency (ER) | payer MEDICARE, SELFPAY ==
[2024-07-23 14:19] VITALS: BP 174/94; PULSE 86; RESP 16; TEMP 37; O2SAT 98; BMI 24.0
--- NOTE | 2024-07-23 14:33 | HMH.EDGENADL ---
Discharge Plan Disposition Patient Disposition: Home, Self-Care Condition: Good Prescriptions Prescriptions: New doxycycline hyclate 100 mg capsule 100 mg PO BID 14 Days Qty: 28 0RF No Action methadone 10 MG/5 ML solution 51 mg PO DAILY ondansetron 4 MG tablet,disintegrating 4 mg PO Q8HP PRN (Reason: Nausea) Qty: 20 0RF Referrals Follow up/Referrals: Provider,Referral, MD [Primary Care Provider] - See instructions Activity Restrictions/Add. Instructions Additional Instructions/Restrictions: I have sent a prescription into your pharmacy for doxycycline. Please take it till it is gone. Follow-up with your PCP within 48 hours for recheck of your tick bites. If you have any worsening signs or symptoms follow-up sooner or return to the ER as needed. Clinical Impressions Clinical Impression: Tick bite of multiple sites Instructions Patient Instructions: DI for Skin Abscess Print Language Print Language: Albanian Discharge ED Provider: Corbin Grant General Adult HPI <TARY Leo - Last Filed: 07/23/24 15:20> General Chief complaint: Skin/Abscess/Foreign Body Stated complaint: infection/abcess Left leg/Right Hip Time Seen by Provider: 07/23/24 14:33 Mode of Arrival: Ambulatory Source of Information: Patient Description of Symptoms (Recalled from ER Triage Doc. by RN): Patient reports bug bites x2 from 2 days ago. Possibly tick bites. Patient reports left medial groin site is red and tender. History of Present Illness HPI narrative: Patient presents for evaluation of initially bug bites. Patient had 2 bug bites 2 days ago and did not notice initially that she actually had attached ticks. She removed them however 1 is on the proximal anterior left thigh and one is in the proximal right lateral thigh. It is been itching and turning red since. She denies any fever myalgias arthralgias chest pain shortness of breath nausea vomiting diarrhea. Related Data Home Medications ?Medication ?Instructions ?Recorded ?Confirmed methadone 10 mg/5 mL oral solution 51 mg PO DAILY Pain 08/18/18 11/19/23 Previous Rx's ?Medication ?Instructions ?Recorded ondansetron 4 mg disintegrating 4 mg PO Q8HP PRN Nausea #20 tabs 11/13/21 tablet doxycycline hyclate 100 mg capsule 100 mg PO BID 14 days #28 caps 07/23/24 Allergies Allergy/AdvReac Type Severity Reaction Status Date / Time codeine Allergy Verified 11/19/23 14:00 [facility] <TRAY Leo - Last Filed: 07/23/24 15:20> [facility] Disclaimer: The information contained in this section may have been updated after the patient was seen, as this information can be updated by other users. Medical History (Updated 07/23/24 @ 15:01 by TRAY Leo) Anxiety Surgical History (Updated 11/19/23 @ 14:14 by GENIE Springer) History of carpal tunnel surgery Family History (Updated 11/19/23 @ 14:16 by GENIE Springer) Other Alcoholism Cancer Diabetes FHx: mental illness Heart attack Hypertension Kidney disease Stroke Thyroid disorder Social History Smoking Status: Never smoker alcohol intake: never current occupational status: disabled Travel in the last 8 weeks?: None Have you lived/traveled outside [place] in past 30 days?: No Contact w/someone who lives/traveled outside [place] past 30 days?: No Exposure to someone with infectious disease in past 14 days?: No Do you have a fever (greater than 100.4 F or 38 C)?: No Have you tested positive for COVID-19?: No Exposed to someone with COVID-19 in past 14 days?: No Do you have a sore throat?: No Do you have a cough?: No Do you have any weakness?: No Do you have any diarrhea?: No Are you experiencing any unusual bleeding?: No Do you have any muscle aches/pain?: No Do you have any abdominal pain?: No Are you experiencing loss of taste or smell?: No Other Medical History Have you received the Flu Vaccine for this season: No Have you received the Pneumonia Vaccine: No <TRAY Leo - Last Filed: 07/23/24 15:20> ROS Obtained: Yes Systems reviewed as appropriate & no additional complaints except as documented Physical Exam <TRAY Leo - Last Filed: 07/23/24 15:20> General General appearance: alert and in no apparent distress Chest Chest inspection: Present normal inspection Respiratory Respiratory exam: Present normal lung sounds bilaterally Cardiovascular Cardiovascular exam: Present regular rate Neurological Exam Neurological exam: Present alert and oriented X3 Medical Decision Making <TRAY Leo - Last Filed: 07/23/24 15:20> Medical Records Screening: Per USPSTF and CDC recommendations, given the prevalence of disease in our region, it is our hospital?s policy to screen for HIV and viral Hepatitis for all patients aged 18 and over and those with ongoing risk factors. Michael Inquiry Pt receiving controlled substance: No Vital Signs: 07/23/24 14:19 07/23/24 15:11 Temperature 98.6 F 98.6 F Temperature Source Tympanic Pulse Rate 86 Pulse Rate [Right] 86 Respiratory Rate 16 16 Blood Pressure 174/94 H Blood Pressure [Right Arm] 174/94 H Blood Pressure Mean [Right Arm] 120 Blood Pressure Source [Right Arm] Automatic Cuff 02 Sat by Pulse Oximetry 98 Oxygen Delivery Method Room Air Room Air Orders (Tests/Meds): ED MEDICATIONS Discontinued Medications Generic Name Dose Route Start Last Admin Trade Name Freq PRN Reason Stop Dose Admin Doxycycline Hyclate 100 mg 07/23/24 15:00 07/23/24 15:03 Doxycycline Hycl 100 Mg Tablet PO 08/02/24 14:59 100 mg Q12H DELANEY Administration Medical Decision Narrative: In summary patient is a 59-year-old female who presents to the emergency department for evaluation of 2 tick bites with cellulitis. Patient is hemodynamically stable upon arrival, afebrile at 98.6. Physical exam is remarkable for a area on the proximal anterior left thigh with a large area of inflamed erythema surrounding the tick bite site which I can visibly see a much smaller area on the right proximal lateral thigh but again I can see where the tick bite was. It is not excoriated. It is not indurated. There is no purulence and is not tender. Tick bite cellulitis versus possible tickborne illness.. Initial workup will be conducted with with labs and imaging was considered however patient has only local symptoms and no systemic symptoms currently thus more advanced workup deferred. Initial interventions were considered however patient currently is afebrile and in no pain thus further workup not pursued. Given this patient is appropriate for discharge with a prescription for doxycycline with first dose given here and close follow-up with her PCP for any continued new or worsening signs or symptoms or return to the ER as needed. <Corbin Grant MD - Last Filed: 07/23/24 15:36> Vital Signs: 07/23/24 14:19 07/23/24 15:11 Temperature 98.6 F 98.6 F Temperature Source Tympanic Pulse Rate 86 Pulse Rate [Right] 86 Respiratory Rate 16 16 Blood Pressure 174/94 H Blood Pressure [Right Arm] 174/94 H Blood Pressure Mean [Right Arm] 120 Blood Pressure Source [Right Arm] Automatic Cuff 02 Sat by Pulse Oximetry 98 Oxygen Delivery Method Room Air Room Air Orders (Tests/Meds): ED MEDICATIONS Discontinued Medications Generic Name Dose Route Start Last Admin Trade Name Melisa PRN Reason Stop Dose Admin Doxycycline Hyclate 100 mg 07/23/24 15:00 07/23/24 15:03 Doxycycline Hycl 100 Mg Tablet PO 08/02/24 14:59 100 mg Q12H DELANEY Administration Medical Decision Narrative: In summary patient is a 59-year-old female who presents to the emergency department for evaluation of 2 tick bites with cellulitis. Patient is hemodynamically stable upon arrival, afebrile at 98.6. Physical exam is remarkable for a area on the proximal anterior left thigh with a large area of inflamed erythema surrounding the tick bite site which I can visibly see a much smaller area on the right proximal lateral thigh but again I can see where the tick bite was. It is not excoriated. It is not indurated. There is no purulence and is not tender. Tick bite cellulitis versus possible tickborne illness.. Initial workup will be conducted with with labs and imaging was considered however patient has only local symptoms and no systemic symptoms currently thus more advanced workup deferred. Initial interventions were considered however patient currently is afebrile and in no pain thus further workup not pursued. Given this patient is appropriate for discharge with a prescription for doxycycline with first dose given here and close follow-up with her PCP for any continued new or worsening signs or symptoms or return to the ER as needed. I was consulted by the DEJAN, and we discussed the complexity of the problems being addressed. I approved the treatment and management plan for this patient's care in the Emergency Department, thus performing a substantive portion of the medical decision making. Corbin Grant MD Critical Care <TRAY Leo - Last Filed: 07/23/24 15:20> Critical Care Time Critical Care Time: No
[2024-07-23] MEDS: DOXYCYCLINE HYCL 100 MG TABLET PO (15:03)
[2024-07-23 15:11] VITALS: BP 174/94; PULSE 86; RESP 16; TEMP 37; O2SAT 98
== END 2024-07-23 15:15 | disposition home or self-care (01) ==
PROVIDERS: Emergency Provider Emergency Medicine
DX: S70.362A Insect bite (nonvenomous), left thigh, initial encounter (principal); S70.361A Insect bite (nonvenomous), right thigh, initial encounter; W57.XXXA Bitten or stung by nonvenomous insect and other nonvenomous arthropods, initial encounter
CPT/HCPCS: 99283